=== PATIENT | female | born 1970 | race Caucasian/White ===

== ENCOUNTER 2018-08-23 02:20 | Emergency (ER) | payer OTHER ==
[~2018-08-23] VITALS: Ht 162.6 cm; Wt 60.6 kg
[2018-08-23 02:24] VITALS: Ht 162.6 cm; Wt 60.6 kg
[2018-08-23] MEDS ORDERED: SOD CHLORIDE 0.9% 1,000 ML IV STA (04:10)
[2018-08-23] MEDS ORDERED: ONDANSETRON 4 MG INJ IV STA (04:10)
[2018-08-23] MEDS ORDERED: KETOROLAC 15 MG INJ IV STA (04:10)
[2018-08-23] MEDS ORDERED: HYDROmorphONE 1 MG/ML SYG IV STA (04:10)
[2018-08-23] MEDS ORDERED: ONDANSETRON (ODT) 4 MG TAB ODT STA (05:25)
--- NOTE | 2018-08-23 05:28 | ERD ---
ER Documentation Chief Complaint Chief Complaint BACK PAIN, SICKLE CELL CRISIS HPI This is a 47-year-old female who presents to the emergency room with lower back pain. The patient is a known history of sickle cell anemia. She normally has exacerbation of the pain in her lower back. She denies any chest pain or s hortness of breath, no fevers or chills. The pain is 8 out of 10 and similar to exacerbations of pain in the past. Symptoms present over the past 24 hours During the patient's encounter translation services were utilized Language: Belarusian Source: [In person] ROS All systems reviewed and are negative except as per history of present illness. Allergies Allergies: Coded Allergies: No Known Allergy (Unverified , 08/23/18) PMhx/Soc History of Surgery: Yes (c/section x1, cholecystectomy) Hx Miscellaneous Medical Probl: Yes (sickle cell) Hx Alcohol Use: No Hx Substance Use: No Hx Tobacco Use: No Smoking Status: Never smoker FmHx Family History: No diabetes Physical Exam Vitals Vital Signs Date Temp Pulse Resp B/P (MAP) Pulse Ox O2 O2 Flow FiO2 Time Delivery Rate 08/23/18 84 16 137/84 98 Room Air 04:25 (101) 08/23/18 98.1 86 18 141/67 97 02:24 (91) Physical Exam General: Well developed, well nourished, no acute distress Head: Normocephalic, atraumatic. Eyes: Pupils equally reactive, EOM intact ENT: Moist mucous membranes Neck: Supple, no lymphadenopathy Respiratory: Lungs clear bilaterally, no distress Cardiovascular: RRR, no murmurs, rubs, or gallops Abdominal: Soft, non-tender, non-distended, no peritoneal signs : Deferred MSK: No edema, no unilateral swelling, 5/5 strength Neurologic: Alert and oriented, moving all extremities, normal speech, no focal weakness, no cerebellar signs Skin: No rash Psych: Normal mood Results 24 hrs Current Medications Medications Dose Sig/Tonya Start Time Status Last (Trade) Ordered Route PRN Stop Time Admin Dose Reason Admin Sodium 1,000 ml @ Q1H STAT 08/23/18 DC 08/23/18 Chloride 1,000 mls/hr IV 04:10 04:27 08/23/18 05:09 1 mg ONCE STAT 08/23/18 DC 08/23/18 Hydromorphone IV 04:10 04:27 HCl 08/23/18 04:12 (Dilaudid) Ondansetron 4 mg ONCE STAT 08/23/18 DC 08/23/18 HCl (Zofran IV 04:10 04:27 Inj) 08/23/18 04:12 Ketorolac 15 mg ONCE STAT 08/23/18 DC 08/23/18 Tromethamine IV 04:10 04:27 (Toradol) 08/23/18 04:12 Procedures/MDM Patient appears to have a sickle cell pain crisis. The patient's pain is in similar location and character to pain crisis in the past. No signs or symptoms concerning for acute chest syndrome, fever or systemic illness. No evidence of infection or infarction. Patient has no chest pain or shortness of breath. No fever. We discussed a single dose of pain medication and reassessment for pos sible transition to oral medication. Patient given 1 mg of Dilaudid with IV fluids and Toradol. Dramatic improvement. The patient was transitioned to oral medication feels comfortable with discharge. No indication for laboratory testing at this time. The patient does not have an identifiable emergent medical condition that warrants inpatient hospitalization at this time. The patient is deemed safe for discharge with outpatient follow-up. We discussed follow up with the patient's primary care doctor within 24 to 48 hours as needed. We also discussed return to the emergency room for worsening symptoms or worsening condition. Outpatient referral: None required Discharge Medications: None required Departure Diagnosis: Primary Impression: Lumbar back pain Additional Impression: Sickle cell pain crisis Condition: Stable ALFONZO CHARLES MD Aug 23, 2018 05:28
[2018-08-23] MEDS ORDERED: HYDROCODONE/APAP (10/325) TAB PO ONE (05:30)
[2018-08-23 06:07] VITALS: BP 133/78; PULSE 78; RESP 16
== END 2018-08-23 06:12 | disposition home or self-care (01) ==
LOC: E/R 02:20
DX: M54.5 Low back pain (principal); D57.00 Hb-SS disease with crisis, unspecified; R40.2142 Coma scale, eyes open, spontaneous, at arrival to emergency department; R40.2362 Coma scale, best motor response, obeys commands, at arrival to emergency department; R40.2252 Coma scale, best verbal response, oriented, at arrival to emergency department
CPT/HCPCS: 96374; 96375; 96376; J1170; J1885; J2405; J7030; Z7502; Z7610

== ENCOUNTER 2018-09-05 16:19 | Inpatient (IN) | payer OTHER ==
[~2018-09-05] VITALS: Ht 152.4 cm; Wt 58.3 kg
[2018-09-05] MEDS ORDERED: SOD CHLORIDE 0.9% 1,000 ML IV STA (17:28)
[2018-09-05] MEDS ORDERED: KETOROLAC 30 MG INJ IV STA (17:56)
[2018-09-05] MEDS ORDERED: morphine 4 MG/ML VIAL IV STA (17:56)
[2018-09-05] MEDS ORDERED: SOD CHLORIDE 0.9% 0 ML IV ONE (18:48)
--- NOTE | 2018-09-05 20:10 | ERD ---
ER Documentation Chief Complaint Chief Complaint HAS SICKLE CELL, HAS BACK,LEGS,ST, PT IS VERY PALE HPI 47-year-old female with a history of sickle cell anemia from [place] presenting with complaints of sore throat, anterior neck pain, back pain, and bilateral leg pain. She states that for the past 3 years she has been in the [place] and has not had a audio installer or primary care doctor addressing her sickle cell anemia. She is on folic acid and tramadol as needed for pain. However she has not been able to get her tramadol refilled due to poor follow-up. For the past few days she has had a sore throat with generalized weakness and difficulty swallowing secondary to the pain in her throat. Denies any fevers, chills, chest pain, shortness of breath, cough, hemoptysis, or phlegm production. Her baseline hemoglobin is 7. ROS All systems reviewed and are negative except as per history of present illness. Allergies Allergies: Coded Allergies: No Known Allergy (Unverified , 08/23/18) PMhx/Soc History of Surgery: Yes (c/section x1, cholecystectomy) Hx Miscellaneous Medical Probl: Yes (sickle cell) Hx Alcohol Use: No Hx Substance Use: No Hx Tobacco Use: No FmHx Family History: diabetes Physical Exam Vitals Vital Signs Date Temp Pulse Resp B/P (MAP) Pulse Ox O2 O2 Flow FiO2 Time Delivery Rate 09/05/18 98.1 89 18 105/64 99 Room Air 19:00 (78) 09/05/18 98.1 88 18 122/72 99 Room Air 17:40 (89) 09/05/18 98.1 100 18 122/72 99 16:24 (89) Physical Exam Const: No acute distress, nontoxic. Appears pale and somewhat jaundiced Head: Atraumatic Eyes: Normal Conjunctiva, scleral icterus noted ENT: Dry mucous membranes. Normal External Ears, Nose and Mouth. Posterior oropharynx with mild erythema but no exudates or swelling. Neck: Full range of motion. No meningismus. Shotty cervical lymphadenopathy. Resp: Clear to auscultation bilaterally Cardio: Regular rate and rhythm, no murmurs. 2+ distal pulses Abd: Soft, non tender, non distended. Normal bowel sounds Skin: Jaundiced. No petechiae or rashes Back: No midline or flank tenderness Ext: No cyanosis, or edema Neur: Awake and alert, normal speech, no facial asymmetry, moving all extremities Psych: Normal Mood and Affect Result Diagram: 09/05/18180609/05/181806 Results 24 hrs Laboratory Tests Test 09/05/18 18:07 White Blood Count 13.1 10^3/ul Red Blood Count 1.75 10^6/ul Hemoglobin 6.5 g/dl Hematocrit 18.3 % Mean Corpuscular Volume 104.6 fl Mean Corpuscular Hemoglobin 37.1 pg Mean Corpuscular Hemoglobin Concent 35.5 g/dl Red Cell Distribution Width 16.7 % Platelet Count 263 10^3/UL Mean Platelet Volume 10.8 fl Immature Granulocytes % 0.500 % Neutrophils % % Segmented Neutrophils % (Manual) 59 % Lymphocytes % % Lymphocytes % (Manual) 21 % Monocytes % % Monocytes % (Manual) 18 % Eosinophils % % Eosinophils % (Manual) 1 % Basophils % % Basophils % (Manual) 1 % Nucleated Red Blood Cells % 2 % Immature Granulocytes # 0.070 10^3/ul Neutrophils # 10^3/ul Lymphocytes (Manual) 2.7 10^3/ul Lymphocytes # 10^3/ul Monocytes # 10^3/ul Monocytes # (Manual) 2.3 10^3/ul Eosinophils # 10^3/ul Basophils # 10^3/ul Basophils # (Manual) 0.1 10^3/ul Nucleated Red Blood Cells # 10^3/ul Platelet Estimate NORMAL Giant Platelets 3 % Polychromasia 3+ Poikilocytosis 1+ Anisocytosis 2+ Macrocytosis 2+ Target Cells 2+ Absolute Reticulocyte Count 0.399 X10^6 Percent Reticulocyte Count 22.8 % Urine Color LEILA Urine Clarity CLEAR Urine pH 5.0 Urine Specific [place] 1.008 Urine Ketones NEGATIVE mg/dL Urine Nitrite NEGATIVE mg/dL Urine Bilirubin NEGATIVE mg/dL Urine Urobilinogen 2+ mg/dL Urine Leukocyte Esterase NEGATIVE Dipesh/ul Urine Microscopic RBC 1 /HPF Urine Microscopic WBC 2 /HPF Urine Squamous Epithelial Cells FEW /HPF Urine Bacteria FEW /HPF Urine Mucus FEW /HPF Urine Hemoglobin 1+ mg/dL Urine Glucose NEGATIVE mg/dL Urine Total Protein NEGATIVE mg/dl Urine Test NEGATIVE Sodium Level 139 mmol/L Potassium Level 4.5 mmol/L Chloride Level 103 mmol/L Carbon Dioxide Level 27 mmol/L Anion Gap 9 Blood Urea Nitrogen 5 mg/dl Creatinine 0.43 mg/dl Est Glomerular Filtrat Rate mL/min > 60 mL/min Glucose Level 100 mg/dl Calcium Level 8.6 mg/dl Total Bilirubin 4.5 mg/dl Direct Bilirubin 0.00 mg/dl Indirect Bilirubin 4.5 mg/dl Aspartate Amino Transf (AST/SGOT) 56 IU/L Alanine Aminotransferase (ALT/SGPT) 26 IU/L Alkaline Phosphatase 70 IU/L Troponin I < 0.012 ng/ml Total Protein 9.4 g/dl Albumin 4.5 g/dl Globulin 4.90 g/dl Albumin/Globulin Ratio 0.91 Lipase 55 U/L Current Medications Medications Dose Sig/Tonya Start Time Status Last (Trade) Ordered Route PRN Stop Time Admin Dose Reason Admin Sodium 1,000 ml @ Q1H STAT 09/05/18 DC 09/05/18 Chloride 1,000 mls/hr IV 17:28 09/05/18 18:44 18:27 Morphine 4 mg ONCE STAT 09/05/18 DC 09/05/18 Sulfate IV 17:56 09/05/18 18:45 (morphine) 17:57 Ketorolac 30 mg ONCE STAT 09/05/18 DC 09/05/18 Tromethamine IV 17:56 09/05/18 18:45 (Toradol) 17:57 Sodium 0 ml @ 0 Q0M ONCE 09/05/18 DC Chloride mls/hr IV 18:48 09/05/18 18:50 Procedures/MDM EMERGENT LABS AND DIAGNOSTIC STUDIES: Lab Results above were reviewed and interpreted by me. CBC: Mild leukocytosis. Severe anemia with hemoglobin 6.5 CMP: Elevated total bilirubin at 4.5, consistent with hemolysis. No evidence of clinically significant electrolyte abnormality, acidosis, renal failure, hypoglycemia, liver disease Lipase: no evidence of pancreatitis Troponin within normal limits, not indicative of cardiac ischemia Reticulocyte count elevated UA: no evidence of infection negative 12-lead EKG was interpreted by Sarah Reyes MD: Normal Sinus Rhythm with ventricular rate of 92 beats per minute Normal axis Normal intervals No acute ST or T wave changes suggestive of acute ischemia or STEMI. Initial Nursing notes reviewed. Previous Medical Records requested via the Electronic Health Record. EMERGENCY DEPARTMENT COURSE / MEDICAL DECISION MAKING: Patient is presenting with likely sickle cell pain crisis. She is afebrile and hemodynamically stable. I suspect she likely has a URI that has exacerbated her condition. She was treated initially with IV fluids and IV analgesics with some improvement of her symptoms. She was noted to be anemic for which PRBCs were ordered. I have a low suspicion for serious bacterial infection. However kyler glez has very poor follow-up and does not yet have a audio installer. I feel she would benefit from admission for stabilization and hematology consultation for appropriate management of her sickle cell anemia. Critical Care Management of Hemorrhage and Symptomatic Anemia: Time: 35 minutes Treatments/Evaluations: Close monitoring and management of bleeding sources while maintaining tight balance of fluid. With judicious assessment of anemia, coagulopathy and thrombocytopenia, while considering correction with blood products and medical therapy. Accepting Care Team: Current data and ongoing care discussed. Time: Time of admission Primary Provider: Departure Diagnosis: Primary Impression: Severe anemia Additional Impression: Sickle cell crisis Condition: Serious FRANKLIN REYES MD Sep 05, 2018 20:10
[2018-09-05] MEDS ORDERED: ACETAMINOPHEN 325 MG TAB PO PRN ×2 (20:30→21:00)
[2018-09-05] MEDS ORDERED: ONDANSETRON 4 MG INJ IV PRN ×2 (20:30→21:00)
[2018-09-05] MEDS ORDERED: HYDROCODONE/APAP (5/325) TAB PO PRN ×2 (21:00)
[2018-09-05] MEDS ORDERED: NACL 0.9% 3 ML SYG IV SCH (21:00)
[2018-09-05 21:30] VITALS: BP 117/58; PULSE 95; RESP 18
[2018-09-05 22:06] VITALS: Ht 152.4 cm; Wt 58.3 kg
[2018-09-05] MEDS: SOD CHLORIDE 0.9% 1,000 ML IV SCH (22:48)
[2018-09-05] MEDS: morphine 4 MG/ML VIAL IV PRN (22:49)
[2018-09-06] MEDS: morphine 4 MG/ML VIAL IV PRN ×7 (02:54→23:30)
[2018-09-06 02:55] VITALS: BP 93/51; PULSE 101; RESP 17
--- NOTE | 2018-09-06 05:37 | HP ---
Date/Time of Note Date/Time of Note DATE: 09/06/18 TIME: 05:29 Assessment/Plan VTE Prophylaxis Pharmacological prophylaxis: heparin Lines/Catheters IV Catheter Type (from Nrsg): Peripheral IV Assessment/Plan Assessment/Plan 1. Sickle cell crisis -IV hydration -Pain management -Hematology consult 2. Anemia, secondary to above -Check ferritin and iron panel -Transfuse PRBCs 3. Jaundice, secondary to hemolysis -Total bilirubin 4.5, all indirect 4. Leukocytosis: Likely reactive Result Diagram: 09/05/18 1807 09/05/18 1807 Results 24hrs Laboratory Tests Test 09/05/18 18:07 White Blood Count 13.1 H Red Blood Count 1.75 L Hemoglobin 6.5 *L Hematocrit 18.3 L Mean Corpuscular Volume 104.6 H Mean Corpuscular Hemoglobin 37.1 H Mean Corpuscular Hemoglobin Concent 35.5 Red Cell Distribution Width 16.7 H Platelet Count 263 Mean Platelet Volume 10.8 H Immature Granulocytes % 0.500 H Neutrophils % Segmented Neutrophils % (Manual) 59 Lymphocytes % Lymphocytes % (Manual) 21 Monocytes % Monocytes % (Manual) 18 H Eosinophils % Eosinophils % (Manual) 1 Basophils % Basophils % (Manual) 1 Nucleated Red Blood Cells % 2 H Immature Granulocytes # 0.070 H Neutrophils # Lymphocytes (Manual) 2.7 Lymphocytes # Monocytes # Monocytes # (Manual) 2.3 H Eosinophils # Basophils # Basophils # (Manual) 0.1 H Nucleated Red Blood Cells # Platelet Estimate NORMAL Giant Platelets 3 H Polychromasia 3+ Poikilocytosis 1+ Anisocytosis 2+ Macrocytosis 2+ Target Cells 2+ Absolute Reticulocyte Count 0.399 H Percent Reticulocyte Count 22.8 H Urine Color LEILA Urine Clarity CLEAR Urine pH 5.0 Urine Specific [place] 1.008 Urine Ketones NEGATIVE Urine Nitrite NEGATIVE Urine Bilirubin NEGATIVE Urine Urobilinogen 2+ H Urine Leukocyte Esterase NEGATIVE Urine Microscopic RBC 1 Urine Microscopic WBC 2 Urine Squamous Epithelial Cells FEW Urine Bacteria FEW A Urine Mucus FEW A Urine Hemoglobin 1+ H Urine Glucose NEGATIVE Urine Total Protein NEGATIVE Urine Test NEGATIVE Sodium Level 139 Potassium Level 4.5 Chloride Level 103 Carbon Dioxide Level 27 Anion Gap 9 Blood Urea Nitrogen 5 L Creatinine 0.43 L Est Glomerular Filtrat Rate mL/min > 60 Glucose Level 100 Calcium Level 8.6 Total Bilirubin 4.5 H Direct Bilirubin 0.00 Indirect Bilirubin 4.5 H Aspartate Amino Transf (AST/SGOT) 56 H Alanine Aminotransferase (ALT/SGPT) 26 Alkaline Phosphatase 70 Troponin I < 0.012 Total Protein 9.4 H Albumin 4.5 Globulin 4.90 H Albumin/Globulin Ratio 0.91 Lipase 55 HPI/ROS Admit Date/Time Admit Date/Time Sep 05, 2018 at 20:37 Hx of Present Illness Patient is a 47-year-old female with history of sickle cell who presents the ER complaining of generalized body pain and back pain. Patient was seen in our ER couple weeks ago with similar complaints. She also complains of yellowing of her eyes and generalized weakness. Patient does not have a hospital liaison until the last time she was actually seen was a home address about 3 years ago. When she presented to the ER, she was found to have a hemoglobin of 6.5, WBC 13,000. Total bilirubin 4.5, all indirect. PMH/Family/Social Past Medical History Past Surgical Hx: other Family History Significant Family History: no pertinent family hx Social History Alcohol Use: none Smoking Status: Never smoker Drug Use: none Exam Constitutional: other (No acute distress) Head: normocephalic, atraumatic Eyes: EOMI, PERRL Respiratory: clear to auscultation, normal air movement Cardiovascular: regular rate and rhythm Gastrointestinal: soft Extremities: normal pulses Medications Current Medications Ondansetron HCl (Zofran Inj) 4 mg BRIDGE ORDER PRN IV NAUSEA/VOMITING; Start 09/05/18 at 20:30; Stop 09/06/18 at 20:29 Acetaminophen (Tylenol Tab) 650 mg ER BRIDGE PRN PO .MILD PAIN 1-3 OR TEMP; Start 09/05/18 at 20:30; Stop 09/06/18 at 20:29 Sodium Chloride 1,000 ml @ 100 mls/hr Q10H IV Last administered on 09/05/18at 22:48; Admin Dose 100 MLS/HR; Start 09/05/18 at 20:49 IV Flush (NS 3 ml) 3 ml PER PROTOCOL IV ; Start 09/05/18 at 21:00 Ondansetron HCl (Zofran Inj) 4 mg Q6H PRN IV NAUSEA/VOMITING; Start 09/05/18 at 21:00 Acetaminophen (Tylenol Tab) 650 mg Q6H PRN PO .PAIN 1-3 OR TEMP; Start 09/05/18 at 21:00 Acetaminophen/ Hydrocodone Bitart ([place] (5/325)) 1 tab Q6H PRN PO .MOD PAIN 4- 6; Start 09/05/18 at 21:00 Acetaminophen/ Hydrocodone Bitart ([place] (5/325)) 2 tab Q6H PRN PO .SEVERE PAIN 7-10; Start 09/05/18 at 21:00 Morphine Sulfate (morphine) 3 mg Q4H PRN IV .SEVERE PAIN 7-10 Last administered on 09/06/18at 02:54; Admin Dose 3 MG; Start 09/05/18 at 21:00 Coded Allergies: No Known Allergy (Unverified , 08/23/18) Social History Smoking Status: Never smoker Exam/Review of Systems Vital Signs Vitals Vital Signs Date Temp Pulse Resp B/P (MAP) Pulse Ox O2 O2 Flow FiO2 Time Delivery Rate 09/06/18 97.7 101 17 93/51 (65) 94 02:55 09/05/18 Room Air 19:00 Intake and Output 09/05/18 09/05/18 09/06/18 1515:00 23:00 07:00 IntakeIntake Total 535 ml BalanceBalance 535 ml JANA RODRÍGUEZ MD Sep 06, 2018 05:37
[2018-09-06] MEDS: SOD CHLORIDE 0.9% 1,000 ML IV SCH ×2 (06:49→18:22)
[2018-09-06 08:07] VITALS: BP 118/70; PULSE 96; RESP 18
--- NOTE | 2018-09-06 11:39 | PN ---
Date/Time of Note Date/Time of Note DATE: 09/06/18 TIME: 11:38 Assessment/Plan VTE Prophylaxis Risk score (from Ns)>0 risk: 3 [place] [facility] [place] Pharmacological prophylaxis: NA/contraindicated Pharm contraindication: low risk/ambulating Lines/Catheters IV [facility] Peripheral IV Assessment/Plan Hospital Course 1. Sickle cell crisis -IV hydration -Pain management Pain management consultation obtained 2. Anemia, secondary to above -Check ferritin and iron panel -Transfuse PRBCs 3. Jaundice, secondary to hemolysis -Total bilirubin 4.5, all indirect 4. Leukocytosis: Likely reactive Prophylaxis: SCDs Result Diagram: 09/06/18 0431 09/06/18 0431 Results 24hrs Laboratory Tests Test 09/05/18 18:07 09/06/18 04:28 09/06/18 04:31 09/06/18 09:57 White Blood Count 13.1 H 10.1 # Red Blood Count 1.75 L 1.47 L Hemoglobin 6.5 *L 5.5 *L Hematocrit 18.3 L 15.1 L Mean Corpuscular Volume 104.6 H 102.7 H Mean Corpuscular 37.1 H 37.4 H Hemoglobin Mean Corpuscular 35.5 36.4 Hemoglobin Concent Red Cell Distribution 16.7 H 16.6 H Width Platelet Count 263 248 Mean Platelet Volume 10.8 H 11.6 H Immature Granulocytes % 0.500 H 0.400 Neutrophils % 53.9 Segmented Neutrophils 59 % (Manual) Lymphocytes % 32.8 Lymphocytes % (Manual) 21 Monocytes % 10.2 Monocytes % (Manual) 18 H Eosinophils % 2.0 Eosinophils % (Manual) 1 Basophils % 0.7 Basophils % (Manual) 1 Nucleated Red Blood 2 H 0.6 H Cells % Immature Granulocytes # 0.070 H 0.040 H Neutrophils # 5.5 Lymphocytes (Manual) 2.7 Lymphocytes # 3.3 H Monocytes # 1.0 H Monocytes # (Manual) 2.3 H Eosinophils # 0.2 Basophils # 0.1 Basophils # (Manual) 0.1 H Nucleated Red Blood 0.1 H Cells # Platelet Estimate NORMAL Giant Platelets 3 H Polychromasia 3+ Poikilocytosis 1+ Anisocytosis 2+ Macrocytosis 2+ Target Cells 2+ Absolute Reticulocyte 0.399 H Count Percent Reticulocyte 22.8 H Count Urine Color LEILA Urine Clarity CLEAR Urine pH 5.0 Urine Specific [place] 1.008 Urine Ketones NEGATIVE Urine Nitrite NEGATIVE Urine Bilirubin NEGATIVE Urine Urobilinogen 2+ H Urine Leukocyte Esterase NEGATIVE Urine Microscopic RBC 1 Urine Microscopic WBC 2 Urine Squamous FEW Epithelial Cells Urine Bacteria FEW A Urine Mucus FEW A Urine Hemoglobin 1+ H Urine Glucose NEGATIVE Urine Total Protein NEGATIVE Urine Test NEGATIVE Sodium Level 139 142 Potassium Level 4.5 3.8 Chloride Level 103 107 Carbon Dioxide Level 27 28 Anion Gap 9 7 Blood Urea Nitrogen 5 L 6 L Creatinine 0.43 L 0.44 Est Glomerular Filtrat > 60 > 60 Rate mL/min Glucose Level 100 97 Calcium Level 8.6 8.3 L Total Bilirubin 4.5 H 4.0 H Direct Bilirubin 0.00 0.00 Indirect Bilirubin 4.5 H 4.0 H Aspartate Amino 56 H 47 H Transf (AST/SGOT) Alanine 26 13 Aminotransferase (ALT/SG PT) Alkaline Phosphatase 70 53 Troponin I < 0.012 Total Protein 9.4 H 7.6 # Albumin 4.5 3.6 Globulin 4.90 H 4.00 H Albumin/Globulin Ratio 0.91 0.90 Lipase 55 Iron Level 70 Total Iron Binding 299 Capacity Percent Iron Saturation 23 Ferritin 283.0 H Hepatitis B Surface POSITIVE H Antibody Phosphorus Level 4.0 Magnesium Level 1.9 Hepatitis B Surface NEGATIVE Antigen Hepatitis B Core NEGATIVE Total Antibody Hepatitis C Antibody REACTIVE H Subjective 24 Hr Interval Summary Musculoskeletal: bone/joint pain Exam/Review of Systems Exam Vitals Vital Signs Date Temp Pulse Resp B/P (MAP) Pulse Ox O2 O2 Flow FiO2 Time Delivery Rate 09/06/18 98.6 96 18 118/70 100 08:07 (86) 09/05/18 Room Air 19:00 Intake and Output 09/05/18 09/05/18 09/06/18 1515:00 23:00 07:00 IntakeIntake Total 535 ml BalanceBalance 535 ml Constitutional: alert, oriented Respiratory: clear to auscultation Cardiovascular: regular rate and rhythm Gastrointestinal: soft; No distended Musculoskeletal: nl extremities to inspection Results Results 24hrs Laboratory Tests Test 09/05/18 18:07 09/06/18 04:28 09/06/18 04:31 09/06/18 09:57 White Blood Count 13.1 H 10.1 # Red Blood Count 1.75 L 1.47 L Hemoglobin 6.5 *L 5.5 *L Hematocrit 18.3 L 15.1 L Mean Corpuscular Volume 104.6 H 102.7 H Mean Corpuscular 37.1 H 37.4 H Hemoglobin Mean Corpuscular 35.5 36.4 Hemoglobin Concent Red Cell Distribution 16.7 H 16.6 H Width Platelet Count 263 248 Mean Platelet Volume 10.8 H 11.6 H Immature Granulocytes % 0.500 H 0.400 Neutrophils % 53.9 Segmented Neutrophils 59 % (Manual) Lymphocytes % 32.8 Lymphocytes % (Manual) 21 Monocytes % 10.2 Monocytes % (Manual) 18 H Eosinophils % 2.0 Eosinophils % (Manual) 1 Basophils % 0.7 Basophils % (Manual) 1 Nucleated Red Blood 2 H 0.6 H Cells % Immature Granulocytes # 0.070 H 0.040 H Neutrophils # 5.5 Lymphocytes (Manual) 2.7 Lymphocytes # 3.3 H Monocytes # 1.0 H Monocytes # (Manual) 2.3 H Eosinophils # 0.2 Basophils # 0.1 Basophils # (Manual) 0.1 H Nucleated Red Blood 0.1 H Cells # Platelet Estimate NORMAL Giant Platelets 3 H Polychromasia 3+ Poikilocytosis 1+ Anisocytosis 2+ Macrocytosis 2+ Target Cells 2+ Absolute Reticulocyte 0.399 H Count Percent Reticulocyte 22.8 H Count Urine Color LEILA Urine Clarity CLEAR Urine pH 5.0 Urine Specific [place] 1.008 Urine Ketones NEGATIVE Urine Nitrite NEGATIVE Urine Bilirubin NEGATIVE Urine Urobilinogen 2+ H Urine Leukocyte Esterase NEGATIVE Urine Microscopic RBC 1 Urine Microscopic WBC 2 Urine Squamous FEW Epithelial Cells Urine Bacteria FEW A Urine Mucus FEW A Urine Hemoglobin 1+ H Urine Glucose NEGATIVE Urine Total Protein NEGATIVE Urine Test NEGATIVE Sodium Level 139 142 Potassium Level 4.5 3.8 Chloride Level 103 107 Carbon Dioxide Level 27 28 Anion Gap 9 7 Blood Urea Nitrogen 5 L 6 L Creatinine 0.43 L 0.44 Est Glomerular Filtrat > 60 > 60 Rate mL/min Glucose Level 100 97 Calcium Level 8.6 8.3 L Total Bilirubin 4.5 H 4.0 H Direct Bilirubin 0.00 0.00 Indirect Bilirubin 4.5 H 4.0 H Aspartate Amino 56 H 47 H Transf (AST/SGOT) Alanine 26 13 Aminotransferase (ALT/SG PT) Alkaline Phosphatase 70 53 Troponin I < 0.012 Total Protein 9.4 H 7.6 # Albumin 4.5 3.6 Globulin 4.90 H 4.00 H Albumin/Globulin Ratio 0.91 0.90 Lipase 55 Iron Level 70 Total Iron Binding 299 Capacity Percent Iron Saturation 23 Ferritin 283.0 H Hepatitis B Surface POSITIVE H Antibody Phosphorus Level 4.0 Magnesium Level 1.9 Hepatitis B Surface NEGATIVE Antigen Hepatitis B Core NEGATIVE Total Antibody Hepatitis C Antibody REACTIVE H Medications Medication Current Medications Sodium Chloride 1,000 ml @ 100 mls/hr Q10H IV Last administered on 09/05/18at 22:48; Admin Dose 100 MLS/HR; Start 09/05/18 at 20:49 IV Flush (NS 3 ml) 3 ml PER PROTOCOL IV ; Start 09/05/18 at 21:00 Ondansetron HCl (Zofran Inj) 4 mg Q6H PRN IV NAUSEA/VOMITING; Start 09/05/18 at 21:00 Acetaminophen (Tylenol Tab) 650 mg Q6H PRN PO .PAIN 1-3 OR TEMP; Start 09/05/18 at 21:00 Morphine Sulfate (morphine) 3 mg Q3H PRN IV .SEVERE PAIN 7-10 Last administered on 09/06/18at 09:34; Admin Dose 3 MG; Start 09/06/18 at 09:00 RONDA COUCH Sep 06, 2018 11:39
[2018-09-06 14:10] VITALS: BP 103/60; PULSE 89; RESP 16
[2018-09-06] MEDS ORDERED: morphine 4 MG/ML VIAL IV STA (17:04)
[2018-09-06 19:55] VITALS: BP 126/71; PULSE 78; RESP 18
[2018-09-06] MEDS: METHADONE (1 MG/ML 5 ML PO UD SYG) PO SCH (21:38)
[2018-09-07 02:20] VITALS: BP 124/67; PULSE 90; RESP 20
[2018-09-07] MEDS: morphine 4 MG/ML VIAL IV PRN ×5 (02:46→15:12)
[2018-09-07] MEDS: SOD CHLORIDE 0.9% 1,000 ML IV SCH ×3 (04:24→14:44)
[2018-09-07 07:58] VITALS: BP 118/69; PULSE 80; RESP 20
[2018-09-07] MEDS: METHADONE (1 MG/ML 5 ML PO UD SYG) PO SCH ×2 (10:02→13:32)
[2018-09-07 13:42] VITALS: BP 123/70; PULSE 82; RESP 20
--- NOTE | 2018-09-07 15:25 | PDOCDIS ---
Discharge Instructions CONDITION [id number] Patient Condition: [id number] Good HOME CARE INSTRUCTIONS: [id number] Diet Instructions: [id number] Regular ACTIVITY: [id number] Activity Restrictions: [id number] No Restrictions FOLLOW UP/APPOINTMENTS Follow-up Plan FOLLOW UP WITH YOUR PCP IN 1-2 WEEKS RONDA COUCH Sep 07, 2018 15:25
--- NOTE | 2018-09-07 17:46 | DS ---
Date/Time of Note Date/Time of Note DATE: 09/07/18 TIME: 17:43 Discharge Summary Admission/Discharge Info Admit Date/Time Sep 05, 2018 at 20:37 Discharge Date/Time September 07, 2018 Discharge Diagnosis 1. Sickle cell crisis-resolved Status post fluids and pain management Outpatient follow-up 2. Anemia, secondary to above Status post transfusion 3. Jaundice, secondary to hemolysis Indirect bilirubin is trending down 4. Leukocytosis: Likely reactive Patient Condition: Good Hospital Course Patient is a 47-year-old female with history of sickle cell who presents with anemia, jaundice and pain. Patient did have elevation of indirect bilirubin, patient was transfused 2 units of packed red blood cells and was given IV fluids and pain medications. Patient's hemoglobin did stabilize and indirect bilirubin did trend down. Patient was instructed on importance of outpatient follow-up, patient was stable for DC, on day of discharge patient's vitals, labs of his exam are stable. Home Meds No Active Prescriptions or Reported Meds Follow-up Plan FOLLOW UP WITH YOUR PCP IN 1-2 WEEKS Primary Care Provider Not On Staff Doctor Time spent on discharge: > 30 minutes RONDA COUCH Sep 07, 2018 17:46
== END 2018-09-07 19:06 | disposition home or self-care (01) | DRG 812 ==
LOC: E/R 16:19 → 2NE 20:15 → OBSVTOIN 20:37
PROVIDERS: ADMIT Internal Medicine; ATTEND Internal Medicine
PROC: 30233N1 Transfusion of Nonautologous Red Blood Cells into Peripheral Vein, Percutaneous Approach (ICD-10-PCS; principal; 2018-09-06)
DX: D57.00 Hb-SS disease with crisis, unspecified (principal); D59.9 Acquired hemolytic anemia, unspecified
CPT/HCPCS: 36415; 36430; 80053; 81001; 82728; 83540; 83690; 83735; 84100; 84484; 84703; 85025; 85045; 85660; 86644; 86704; 86706; 86709; 86803; 86850; 86870; 86900; 86901; 86902; 86920; 87340; 93005; 96374; 96375; 99217; G0378; J1885; J2270; J7030; J7040; P9016